=== PATIENT | female | born 1930 | race Caucasian/White ===

== ENCOUNTER 2018-02-14 15:50 | Inpatient (IN) | payer OTHER ==
[~2018-02-14] VITALS: Ht 160 cm; Wt 68.0 kg
--- NOTE | 2018-02-14 16:39 | Diagnostic Imaging Report ---
PROCEDURE: CHEST SINGLE (PORTABLE) COMPARISON: None. INDICATIONS: NAUSEA FINDINGS: LUNGS: Ill-defined air space opacity in the right upper lobe may represent pneumonia. Upright PA and lateral chest would be of benefit. PLEURA: No effusions or pneumothorax. HEART \T\ MEDIASTINUM: The heart is within normal size-limits. BONES \T\ SOFT TISSUES: No acute findings. The increased density of lower vertebral bodies likely represents cement. CONCLUSION: Ill-defined right upper lobe airspace opacity. Satish Rain D.O. Dictated by: Satish Rain D.O. on 02/14/2018 at 16:40 Electronically approved by: Satish Rain D.O. on 02/14/2018 at 16:40
[2018-02-14] MEDS ORDERED: SODIUM CHLORIDE 0.9% 500ML 500 ML IV STA (17:08)
[2018-02-14] MEDS ORDERED: ONDANSETRON HCL 4 MG ORAL DISINTEGRATING TAB PO ONE (17:15)
[2018-02-14 17:21] LABS: BASOPHILS % 0.3 % (0.0-1.0); EOSINOPHILS # (AUTO) 0.1 (0.0-0.4); EOSINOPHILS % 1.7 % (0.0-6.0); HEMATOCRIT 38.3 % (34.2-44.1); HEMOGLOBIN 13.3 g/dL (12.0-16.0); LYMPHOCYTES # (AUTO) 1.6 (1.0-3.2); LYMPHOCYTES % 21.3 % (18.0-39.1); MEAN CORPUSCULAR HEMOGLOBIN 34.5 pg (28-32); MEAN CORPUSCULAR HGB CONC 34.7 g/dL (31-35); MEAN CORPUSCULAR VOLUME 99.5 fL (81-99); MONOCYTES # (AUTO) 0.5 (0.2-0.8); NEUTROPHILS # (AUTO) 5.3 (2.1-6.9); NEUTROPHILS % 69.2 % (38.7-80.0); PLATELET COUNT 210 x10e3/uL (140-360); RED BLOOD COUNT 3.85 x10e6/uL (3.6-5.1); RED CELL DISTRIBUTION WIDTH 12.8 % (11.7-14.4)
[2018-02-14 17:36] LABS: INR 1.1; PARTIAL THROMBOPLASTIN TIME 28.6 seconds (23.8-35.5); PROTHROMBIN TIME 13.4 seconds (11.9-14.5)
[2018-02-14 17:36] LABS: CLARITY,URINE SL CLOUDY (CLEAR); COLOR,URINE YELLOW (YELLOW); LEUKOCYTE ESTERASE ,URINE TRACE (NEGATIVE); NITRITE,URINE NEGATIVE (NEGATIVE); PROTEIN,URINE DIPSTICK 3+ (NEGATIVE)
[2018-02-14 17:37] LABS: BILIRUBIN,URINE 1+ (NEGATIVE); KETONES,URINE NEGATIVE (NEGATIVE); URINE UROBILINOGEN 1 mg/dL (0.2 - 1)
[2018-02-14 17:41] LABS: BACTERIA,URINE MANY /HPF; EPITHELIAL CELLS,URINE RARE /LPF
[2018-02-14 17:43] LABS: ALBUMIN 2.7 g/dL (3.5-5.0); ALBUMIN/GLOBULIN RATIO 0.7 (0.8-2.0); ANION GAP 15.7 mmol/L (8-16); CALCIUM 8.5 mg/dL (8.4-10.2); CREATININE, SERUM 1.59 mg/dL (0.57-1.11); MAGNESIUM 1.6 MG/DL (1.3-2.1); POTASSIUM 3.7 mmol/L (3.5-5.1)
[2018-02-14 18:03] LABS: CREATINE KINASE MB 1.5 ng/mL (0-5.0); THYROID STIMULATING HORMONE 4.687 uIU/mL (0.350-4.940)
[2018-02-14] MEDS ORDERED: ZOFRAN4 MG PO (18:48)
[2018-02-14] MEDS ORDERED: AMLODIPINE BESYL5 MG PO (18:55)
[2018-02-14] MEDS ORDERED: NEXIUM40 MG PO (18:55)
[2018-02-14] MEDS ORDERED: SENNA LAXATIVE8.6 MG PO (18:55)
[2018-02-14] MEDS ORDERED: PLAVIX75 MG PO (18:55)
[2018-02-14] MEDS ORDERED: SIMVASTATIN20 MG PO (18:55)
[2018-02-14] MEDS ORDERED: LEVOTHYROXINE75 MCG PO (18:55)
[2018-02-14] MEDS ORDERED: FLUOXETINE HCL10 MG PO (18:55)
[2018-02-14] MEDS ORDERED: METOPROLOL TART25 MG PO (18:55)
[2018-02-14] MEDS ORDERED: AMIODARONE HCL200 MG PO (18:55)
[2018-02-14] MEDS ORDERED: LEVOFLOXACIN 500MG/D5W 100ML 100 ML IV ONE (19:00)
[2018-02-14] MEDS ORDERED: ASPIRIN 81 MG CHEW TAB PO ONE (19:15)
[2018-02-14] MEDS ORDERED: LEVOFLOXACIN 750MG/DEXTROSE PREMIX BAG 150ML IV SCH (19:15)
[2018-02-14] MEDS ORDERED: AZITHROMYCIN 500MG/SOD CHL 0.9% 250ML BAG IV SCH (19:15)
--- OUTSIDE RECORDS SUMMARY | 2018-02-14 20:14 | XMS REPORT ---
Author Author [facility] Address Unknown Phone Unavailable Care Team Providers Care Education And Training Coordinator Name Role Phone CRISTINA ROBERT Unavailable Unavailable Problems This patient has no known problems. Allergies, Adverse Reactions, Alerts This patient has no known allergies or adverse reactions. Medications This patient has no known medications. Results Test Description Test Time Test Comments Text Results Atomic Results Result Comments CHEST SINGLE (PORTABLE) [place] [address] Patient Name: EH COPELAND MR #: [id number] : 1930 Age/Sex: 87/F Req #: [id number] Adm Physician: Ordered by: KARLOS KUMAR INSIDE OUTSIDE SALES REPRESENTATIVE Report #: [id number] Location: ER Room/Bed: Procedure: [id number] DX/CHEST SINGLE (PORTABLE) Exam Date: 02/14/18 Exam Time: 1610 REPORT STATUS: Signed PROCEDURE: CHEST SINGLE (PORTABLE) COMPARISON: None. INDICATIONS: NAUSEA FINDINGS : LUNGS: Ill-defined air space opacity in the right upper lobe may represent pneumonia. Upright PA and lateral chest would be of benefit. PLEURA: No effusions or pneumothorax. HEART T MEDIASTINUM: The heart is within normal size-limits. BONES T SOFT TISSUES: No acute findings. The increased density of lower vertebral bodies likely represents cement. CONCLUSION: Ill-defined right upper lobe airspace opacity. Isidro Rain D.O. Dictated by: Isidro Rain D.O. on 02/14/2018 at 16:40 Electronically approved by: Isidro Rain D.O. on 02/14/2018 at 16:40 Dictated By: ISIDRO RAIN DO 164 Transcribed By: PARKER on 02/14/18 164 COPY TO: KARLOS KUMAR NP
[2018-02-14] MEDS: SODIUM CHLORIDE 0.9% 1000ML 1,000 ML IV SCH (22:01)
[2018-02-14] MEDS: LEVOFLOXACIN 750MG/D5W 150ML 150 ML IV SCH (22:03)
[2018-02-14] MEDS ORDERED: SENNOSIDES 8.6 MG TAB PO SCH (23:45)
[2018-02-14] MEDS ORDERED: HYDRALAZINE HCL 20 MG/ML VIAL IV PRN (23:45)
[2018-02-15] VITALS (10 sets, daily range): BP systolic 111–205; BP diastolic 52–79
[2018-02-15] MEDS: AMLODIPINE BESYLATE 5 MG TAB PO SCH ×2 (00:24→09:00)
[2018-02-15] MEDS: AZITHROMYCIN 500MG/NS 250 ML 250 ML IV SCH ×2 (00:24→20:40)
[2018-02-15] MEDS: LISINOPRIL 10 MG TAB PO SCH ×2 (00:34→09:00)
[2018-02-15] MEDS: SODIUM CHLORIDE 0.9% 1000ML 1,000 ML IV SCH ×2 (03:03→12:41)
[2018-02-15 04:03] LABS: CREATINE KINASE MB 1.6 ng/mL (0-5.0)
[2018-02-15] MEDS ORDERED: SENNOSIDES 8.6 MG TAB PO PRN (06:15)
[2018-02-15] MEDS: LEVOTHYROXINE SODIUM 75 MCG TAB PO SCH (07:05)
[2018-02-15] MEDS: FLUOXETINE HCL 10 MG CAP PO SCH (09:22)
[2018-02-15] MEDS: PANTOPRAZOLE SOD 40 MG TABEC PO SCH (09:22)
[2018-02-15] MEDS: ONDANSETRON HCL INJ 2 MG/ML VIAL IV PRN ×3 (09:22→21:10)
[2018-02-15] MEDS: AMIODARONE HCL 200 MG TAB PO SCH (09:22)
[2018-02-15] MEDS: CLOPIDOGREL BISULFATE 75 MG TAB PO SCH (09:22)
[2018-02-15 11:41] LABS: CREATINE KINASE MB 1.8 ng/mL (0-5.0)
--- NOTE | 2018-02-15 18:10 | History and Physical ---
HISTORY OF PRESENT ILLNESS: An 87-year-old white female with past medical history positive for coronary artery disease status post stent placement, chronic renal insufficiency. Apparently she started having vomiting, diarrhea, and came to the emergency room. She was found to have pneumonia and dehydration also. REVIEW OF SYSTEMS: CARDIOVASCULAR: No chest pain or palpitation. RESPIRATORY: No shortness of breath. No cough. GASTROINTESTINAL: She had nausea but no vomiting, no diarrhea now, no abdominal pain. GENITOURINARY: No frequency, no dysuria. ALLERGIES: ALLERGIC TO A LONG LIST OF MEDICATIONS THAT INCLUDES PENICILLIN, SULFA, VENLAFAXINE, ASPIRIN, CODEINE, MORPHINE, IODINE, IODINATED CONTRAST BOTH ORAL AND IV DYE. SOCIAL HISTORY: She does not smoke. She does not drink. PAST MEDICAL HISTORY: Hypertension, chronic renal insufficiency, coronary artery disease status post stent placement. VITAL SIGNS: On the blood pressure 135/61. Temperature 97.4. Heart rate 55 per minute. Respiratory rate is 18 per minute. Oxygen saturation 97%. On the blood work, we have a BMP: Sodium 132, potassium 3.7, chloride 99, CO2 21, BUN 20, creatinine 1.59, glucose 98. On the CBC: White blood count 7.69, hemoglobin 13.3, hematocrit 38.3, platelet count 210,000. PT 13.4, PTT 28.6, INR 1.10. AST 98, ALT 91, total bilirubin 0.8, alkaline phosphatase 76. PHYSICAL EXAMINATION: HEART: Shows regular rhythm. Normal S1 and S2 sounds. LUNGS: Clear bilaterally. ABDOMEN: Soft. No tenderness, no distention, no visceromegaly. EXTREMITIES: Show no evidence of cyanosis, edema or trauma. Chest x-ray showed no evidence of infiltrate. Urine showed evidence of a gram-negative in the urine culture. Blood culture is still pending. FINAL IMPRESSION: 1. Aspiration pneumonia. 2. [id number] renal failure stage 3. 3. Urinary tract infection. 4. Hypertensive nephropathy. 5. Vomiting. 6. Coronary artery disease status post stent. 7. Diarrhea. 8. Elevated liver function tests. PLAN OF TREATMENT: Continue Zithromax 250 mg IV piggyback once a day. Levaquin 500 mg IV piggyback daily. Normal saline at 75 mL an hour. Amlodipine 5 mg daily. Zocor 20 mg daily. Plavix 75 mg daily. Lisinopril 10 mg daily. Amiodarone 200 mg daily. Fluoxetine 10 mg daily. Hydralazine 20 mg q.4 h. as needed for hypertension. Protonix 40 mg daily. Levothyroxine 75 mcg daily. We are going to also order physical and occupational therapy, speech therapy evaluation, renal ultrasound, gastroenterology consult, hepatitis profile, iron, TIBC, ferritin, ceruloplasmin level, and antimitochondrial antibodies, antinuclear antibodies. Repeat LFTs tomorrow. Liver ultrasound. Job#: [id number] EV
[2018-02-15 18:17] LABS: FERRITIN 598.63 ng/mL (4.63-204.00)
[2018-02-15] MEDS: LEVOFLOXACIN 750MG/D5W 150ML 150 ML IV SCH (19:59)
[2018-02-15] MEDS: SIMVASTATIN 20 MG TAB PO SCH (20:40)
[2018-02-16] VITALS (8 sets, daily range): BP systolic 105–169; BP diastolic 56–70
[2018-02-16] MEDS: LEVOTHYROXINE SODIUM 75 MCG TAB PO SCH (05:16)
[2018-02-16 07:28] LABS: ALBUMIN 2.1 g/dL (3.5-5.0); ALBUMIN/GLOBULIN RATIO 0.8 (0.8-2.0); ANION GAP 11.7 mmol/L (8-16); CALCIUM 7.8 mg/dL (8.4-10.2); CREATININE, SERUM 1.68 mg/dL (0.57-1.11)
[2018-02-16 07:38] LABS: POTASSIUM 2.7 mmol/L (3.5-5.1)
[2018-02-16] MEDS ORDERED: POTASSIUM CHLORIDE 20 MEQ TAB CR PO STA (07:55)
[2018-02-16] MEDS ORDERED: POTASSIUM CHLORIDE 20 MEQ TAB CR PO ONE ×3 (08:50→09:45)
[2018-02-16] MEDS: METOPROLOL TARTRATE 25 MG TAB PO SCH ×2 (09:00→16:26)
[2018-02-16] MEDS: ONDANSETRON HCL INJ 2 MG/ML VIAL IV PRN (10:11)
--- NOTE | 2018-02-16 11:58 | Diagnostic Imaging Report ---
PROCEDURE:ABDOMINAL ULTRASOUND COMPARISON:None. INDICATIONS:ELEVATED LFT'S FINDINGS: Liver: 12.4 cm in length in the right midclavicular line. Normal hepatic parenchymal echogenicity. Within the central left lobe there is a lobulated anechoic structure without internal vascularity, solid component, or thick septation measuring 2.7 x 2.7 x 4 cm. Main portal vein: 0.8 cm in caliber. Hepatopedal flow. Gallbladder: Surgically absent. Common Bile Duct: 0.6 cm in caliber. No echogenic filling defect. Right kidney: 7.3 cm in length. Scattered exophytic anechoic round structures project from the right kidney, the largest of which projects laterally and measures 4.7 x 5.4 x 4.9 cm. Increased renal cortical echogenicity. Left kidney: 10.6 cm in length. Scattered exophytic anechoic round structures project from the left kidney, the largest of which projects laterally and measures 4 x 4.4 x 3.7 cm. Increased renal cortical echogenicity. Spleen: 10.8 cm in length. Uniform parenchymal echotexture. Pancreas: The visualized portions of the pancreas are normal. Inferior vena cava: Patent. Aorta: Poorly visualized secondary overlying bowel gas. Ascites: None. CONCLUSION: Simple cyst within the left hepatic lobe measuring 4 cm. Otherwise unremarkable sonographic appearance of the liver. Status post cholecystectomy. Diminutive right kidney. Increased bilateral renal cortical echogenicity compatible with medical renal disease. Bilateral simple renal cysts. Dictated by: Saad Mcnair M.D. on 02/16/2018 at 12:00 Electronically approved by: Saad Mcnair M.D. on 02/16/2018 at 12:00
[2018-02-16] MEDS ORDERED: MEROPENEM 500MG 500 MG in SODIUM CHLORIDE 0.9% 50ML 50 ML IV SCH (12:00)
[2018-02-16] MEDS: LISINOPRIL 10 MG TAB PO SCH (12:02)
[2018-02-16] MEDS: PANTOPRAZOLE SOD 40 MG TABEC PO SCH (12:02)
[2018-02-16] MEDS: FLUOXETINE HCL 10 MG CAP PO SCH (12:02)
[2018-02-16] MEDS: AMLODIPINE BESYLATE 5 MG TAB PO SCH (12:02)
[2018-02-16] MEDS: AMIODARONE HCL 200 MG TAB PO SCH (12:02)
[2018-02-16] MEDS: CLOPIDOGREL BISULFATE 75 MG TAB PO SCH (12:02)
[2018-02-16] MEDS: MEROPENEM 500 MG VIAL IV SCH ×2 (12:29→17:47)
--- NOTE | 2018-02-16 12:34 | Progress Note ---
DATE: INTERNAL MEDICINE PROGRESS NOTE SUBJECTIVE: She did have some vomiting today. PHYSICAL EXAMINATION: HEART: Shows regular rhythm. Normal S1 and S2 sounds. LUNGS: Are clear bilaterally. ABDOMEN: Soft. EXTREMITIES: Show no evidence of cyanosis, edema or trauma. VITAL SIGNS: Blood pressure 134/60. Temperature 96.2. Heart rate 60 per minute. Respiratory rate is 20 per minute. Oxygen saturation is 96%. BLOOD WORK: We have a BMP: Sodium 134, potassium 2.7, chloride 105, CO2 20, BUN 22, creatinine 1.66, glucose 86. On the CBC: White blood count 7.69, hemoglobin 13.3, hematocrit 38.3, platelet count 210,000. PT 13.4, INR 1.10, PTT 28.6. AST 63, ALT 63, total bilirubin 0.6, alkaline phosphatase 56. FINAL IMPRESSION: 1. Aspiration pneumonia. 2. Acute on chronic renal failure stage 3. 3. Hypertensive nephropathy. 4. Elevated liver function tests. 5. Coronary artery disease status post stent placement in the past. 6. Vomiting. 7. Urinary tract infection. PLAN OF TREATMENT: Replace the potassium. We are going to continue Zithromax 250 mg IV once a day. We are going to discontinue Levaquin and put her on meropenem 500 mg IV q.6 hours due to the urine culture report. The E. coli is resistant to Levaquin. THE PATIENT IS ALLERGIC TO PENICILLIN AND BACTRIM. Continue amlodipine 5 mg daily. Plavix 75 mg daily. Lisinopril 10 mg daily. Amiodarone 200 mg daily. Continue with fluoxetine 10 mg daily. Hydralazine 20 mg IV q.4 hours as needed. Protonix 40 mg daily. Levothyroxine 75 mcg daily. Zofran 4 mg IV q.4 hours as needed. Metoprolol 25 mg twice a day. Simvastatin 20 mg daily. Senna 1 tablet daily. We are going to continue the workup on the elevated liver function tests including abdominal ultrasound and including iron, TIBC, ferritin, hepatitis profile, ceruloplasmin antinuclear antibodies. Continue physical and occupational therapy. Blood cultures were negative. Urine culture showed 100,000 colonies of E. coli. Job#: [id number] EV
[2018-02-16] MEDS: ONDANSETRON HCL 4 MG ORAL DISINTEGRATING TAB PO PRN ×2 (15:23→19:58)
[2018-02-16 17:41] LABS: MAGNESIUM 1.2 MG/DL (1.3-2.1); POTASSIUM 4.4 mmol/L (3.5-5.1)
[2018-02-16] MEDS: AZITHROMYCIN 500MG/NS 250 ML 250 ML IV SCH (19:35)
[2018-02-16] MEDS: SIMVASTATIN 20 MG TAB PO SCH (20:58)
[2018-02-17] VITALS: BP 160/69
[2018-02-17] MEDS: MEROPENEM 500 MG VIAL IV SCH ×4 (00:20→18:11)
[2018-02-17] MEDS: ONDANSETRON HCL 4 MG ORAL DISINTEGRATING TAB PO PRN ×2 (01:06→11:45)
[2018-02-17 04:00] VITALS: BP 130/58
[2018-02-17] MEDS: LEVOTHYROXINE SODIUM 75 MCG TAB PO SCH (06:03)
[2018-02-17 07:39] LABS: ALBUMIN 2.1 g/dL (3.5-5.0); ALBUMIN/GLOBULIN RATIO 0.8 (0.8-2.0); ANION GAP 9.2 mmol/L (8-16); CALCIUM 8.1 mg/dL (8.4-10.2); CREATININE, SERUM 1.57 mg/dL (0.57-1.11); POTASSIUM 4.2 mmol/L (3.5-5.1)
[2018-02-17 07:56] VITALS: BP 120/53
[2018-02-17] MEDS: AMIODARONE HCL 200 MG TAB PO SCH (08:10)
[2018-02-17] MEDS: PANTOPRAZOLE SOD 40 MG TABEC PO SCH (08:10)
[2018-02-17] MEDS: CLOPIDOGREL BISULFATE 75 MG TAB PO SCH (08:10)
[2018-02-17] MEDS: AMLODIPINE BESYLATE 5 MG TAB PO SCH (08:10)
[2018-02-17] MEDS: FLUOXETINE HCL 10 MG CAP PO SCH (08:11)
[2018-02-17] MEDS: LISINOPRIL 10 MG TAB PO SCH (09:00)
[2018-02-17] MEDS: METOPROLOL TARTRATE 25 MG TAB PO SCH ×2 (09:00→17:00)
[2018-02-17 10:10] VITALS: BP 120/53
[2018-02-17 11:51] VITALS: BP 143/65
[2018-02-17] MEDS ORDERED: MAGNESIUM SULF 1GRAM/DEXTROSE 100 ML IV ONE (15:30)
[2018-02-17 16:15] VITALS: BP 136/63
--- NOTE | 2018-02-17 16:31 | Discharge Summary ---
HISTORY OF PRESENT ILLNESS: Patient is an 87-year-old female with past medical history positive for hypertension, chronic renal insufficiency, hypertensive nephropathy, coronary artery disease. Came here with vomiting, diarrhea. She was found to have aspiration pneumonia, acute on chronic renal failure stage 3. She was started on IV antibiotics and IV fluids. We optimized the antihypertensive regimen. She was taking Zofran for the vomiting. She was also found to have elevated LFTs. Patient is going to be transferred to [facility] today. PHYSICAL EXAM: HEART: Shows regular rhythm. Normal S1 and S2 sounds. LUNGS: Clear bilaterally. ABDOMEN: Soft. EXTREMITIES: Show no evidence of cyanosis, edema or trauma. On the CBC: White blood count 7.69, hemoglobin 13.3, hematocrit 38.3, platelet count 210,000. On the BMP: Sodium 133, potassium 4.2, chloride 107, CO2 21, BUN 21, creatinine 1.57, glucose 87, magnesium was low at 1.2. Iron 67, ferritin 588.63. Total bilirubin 0.6, AST 53, ALT 56, alkaline phosphatase of 57, total protein 4.9, albumin 2.1, globulin 2.8, albumin-globulin ratio 0.8. Antinuclear antibodies are still pending. The hepatitis profile is still pending. Coagulation showed PT 13.4, INR 1.10, PTT 28.6. On the microbiology: Blood cultures negative times 2 with the urine culture showing E. coli 100,000 colonies. VITAL SIGNS: Blood pressure is 143/65, temperature 96.3, heart rate 52 per minute, respiratory rate is 22 per minute, oxygen saturation 98%. FINAL IMPRESSIONS: 1. Aspiration pneumonia. 2. Acute renal failure on chronic renal failure stage 3. 3. Hypertensive nephropathy. 4. Coronary artery disease status post stent in the past. 5. Vomiting, which is resolving. 6. Diarrhea, which is resolving. 7. Urinary tract infection with Escherichia coli. 8. Elevated liver function tests. PLAN OF TREATMENT: Continue Zithromax 500 mg IV daily. Continue amiodarone 200 mg daily. Amlodipine 5 mg daily. Plavix 75 mg daily. Fluoxetine 10 mg daily. Hydralazine 20 mg IV q.4 hours as needed. Levothyroxine 75 mcg daily. Lisinopril 10 mg daily. Meropenem 500 mg IV q.6 hours. Metoprolol 25 mg twice a day. Zofran 4 mg p.o. q.4 hours as needed. Protonix 40 mg daily. Senna 1 tablet daily. Simvastatin 20 mg daily, which we are going to place on hold as long as she is on the Zithromax. So, patient is going to be transferred to [facility] today for continuation of the IV antibiotics, physical and occupational therapy. ISRAEL IRWIN MD Job#: [id number] EV
== END 2018-02-17 19:05 | DRG 178 ==
LOC: ER 15:50 → ERHOLD 20:11 → MED/SURG3 22:52
PROVIDERS: ADMIT Internal Medicine; ATTEND Internal Medicine
DX: J69.0 Pneumonitis due to inhalation of food and vomit (principal); N17.9 Acute kidney failure, unspecified; N39.0 Urinary tract infection, site not specified; E86.0 Dehydration; I12.9 Hypertensive chronic kidney disease with stage 1 through stage 4 chronic kidney disease, or unspecified chronic kidney disease; N18.3 Chronic kidney disease, stage 3 (moderate); I25.10 Atherosclerotic heart disease of native coronary artery without angina pectoris; B96.20 Unspecified Escherichia coli [E. coli] as the cause of diseases classified elsewhere; R94.5 Abnormal results of liver function studies; R19.7 Diarrhea, unspecified; Z95.5 Presence of coronary angioplasty implant and graft
CPT/HCPCS: 36415; 71045; 76700; 80053; 81001; 82390; 82550; 82553; 82607; 82728; 82746; 83540; 83735; 84132; 84443; 84484; 85025; 85610; 85730; 86039; 87040; 87086; 87186; 93005; 96360; 96361; 99284; J0360; J0456; J2185; J2405; J3475; J7030; J7040

== ENCOUNTER 2018-05-15 14:37 | Observation (INO) | payer OTHER ==
[~2018-05-15] VITALS: Ht 160 cm; Wt 69.2 kg
[~2018-05-15 14:37] MED LIST: AMIODARONE HCL200 MG PO; AMLODIPINE BESYL5 MG PO; FLUOXETINE HCL10 MG PO; LEVOTHYROXINE75 MCG PO; METOPROLOL TART25 MG PO; NEXIUM40 MG PO; PLAVIX75 MG PO; SENNA LAXATIVE8.6 MG PO; SIMVASTATIN20 MG PO; ZOFRAN4 MG PO
[2018-05-15] MEDS ORDERED: LISINOPRIL10 MG PO (15:26)
[2018-05-15] MEDS ORDERED: ATORVASTATIN CA10 MG PO (15:26)
--- NOTE | 2018-05-15 15:30 | Diagnostic Imaging Report ---
PROCEDURE: A single AP view of the chest. COMPARISON: 02/14/18 INDICATIONS: LOW HEART RATE FINDINGS: Lines/tubes: None. Lungs: Liver is slight rotation. The lungs are well inflated. Mild central vascular congestion. Prominent interstitial lung markings. Pleura: There is no pleural effusion or pneumothorax. Heart and mediastinum: The heart and the mediastinum are unremarkable. Bones: No acute bony abnormality. IMPRESSION: Limited by slight rotation. Prominent interstitial lung markings, could be chronic or represent mild interstitial edema. Mild central vascular congestion. Dictated by: Kevon Nelson M.D. on 05/15/2018 at 15:35 Electronically approved by: Kevon Nelson M.D. on 05/15/2018 at 15:35
[2018-05-15 15:52] LABS: BASOPHILS % 0.3 % (0.0-1.0); EOSINOPHILS # (AUTO) 0.1 (0.0-0.4); EOSINOPHILS % 2.1 % (0.0-6.0); HEMATOCRIT 38.6 % (34.2-44.1); HEMOGLOBIN 12.6 g/dL (12.0-16.0); LYMPHOCYTES # (AUTO) 2.1 (1.0-3.2); LYMPHOCYTES % 33.9 % (18.0-39.1); MEAN CORPUSCULAR HEMOGLOBIN 34.7 pg (28-32); MEAN CORPUSCULAR HGB CONC 32.6 g/dL (31-35); MEAN CORPUSCULAR VOLUME 106.3 fL (81-99); MONOCYTES # (AUTO) 0.4 (0.2-0.8); NEUTROPHILS # (AUTO) 3.6 (2.1-6.9); NEUTROPHILS % 57.4 % (38.7-80.0); PLATELET COUNT 151 x10e3/uL (140-360); RED BLOOD COUNT 3.63 x10e6/uL (3.6-5.1)
[2018-05-15 16:13] LABS: ALBUMIN 3.3 g/dL (3.5-5.0); ALBUMIN/GLOBULIN RATIO 0.9 (0.8-2.0); ANION GAP 15.4 mmol/L (8-16); CALCIUM 8.9 mg/dL (8.4-10.2); CREATININE, SERUM 1.76 mg/dL (0.57-1.11); POTASSIUM 4.4 mmol/L (3.5-5.1)
[2018-05-15 16:20] LABS: CREATINE KINASE MB 1.1 ng/mL (0-5.0)
[2018-05-15] MEDS: LISINOPRIL 20 MG TAB PO SCH (17:28)
[2018-05-15 19:33] VITALS: BP 154/65
[2018-05-15 19:47] VITALS: BP 154/65
[2018-05-15 19:49] VITALS: BP 154/65
[2018-05-16] VITALS (7 sets, daily range): BP systolic 112–175; BP diastolic 55–72
[2018-05-16 01:16] LABS: CREATINE KINASE MB 0.9 ng/mL (0-5.0)
[2018-05-16 05:50] LABS: CHOL/HDL RATIO 3.1 (3.0-3.6)
[2018-05-16 06:56] LABS: CREATINE KINASE MB 0.9 ng/mL (0-5.0)
[2018-05-16] MEDS: LISINOPRIL 20 MG TAB PO SCH (08:37)
[2018-05-16] MEDS ORDERED: LISINOPRIL 10 MG TAB PO SCH (09:00)
[2018-05-16] MEDS ORDERED: SENNOSIDES 8.6 MG TAB PO SCH (12:15)
[2018-05-16] MEDS ORDERED: HYDRALAZINE HCL 20 MG/ML VIAL IV PRN (12:30)
[2018-05-16] MEDS ORDERED: SENNOSIDES 8.6 MG TAB PO PRN (12:45)
--- NOTE | 2018-05-16 13:45 | History and Physical ---
HISTORY OF PRESENT ILLNESS: [id number] female with past medical history positive for hypertension, paroxysmal atrial fibrillation, chronic renal insufficiency. The patient was sent to the emergency room from the clinic because of severe bradycardia. The heart rate was in the 40s. REVIEW OF SYSTEMS CARDIOVASCULAR: No chest pain or palpitation. RESPIRATORY: No shortness of breath and no cough. GASTROINTESTINAL: No nausea, no vomiting, no diarrhea. GENITOURINARY: No frequency or dysuria. ALLERGIES: SHE IS ALLERGIC TO MORPHINE, SULFA DRUGS, PENICILLIN, IODINE CONTRAST. PAST MEDICAL HISTORY: Hypertension, paroxysmal atrial fibrillation, chronic renal insufficiency. SOCIAL HISTORY: She does not smoke. She does not drink. PHYSICAL EXAMINATION VITAL SIGNS: Blood pressure 175/72, temperature 95.3, heart rate is 43 per minute, respiratory rate is 18 per minute, oxygen saturation 95%. On the BMP, sodium 137, potassium 4.4, chloride 106, CO2 20, BUN 23, creatinine 1.76, glucose 80. On the CBC, white blood count 6.29, hemoglobin 12.6, hematocrit 38.6, platelet count 151,000. AST 90, ALT 68, total bilirubin 0.5, alkaline phosphatase 108. EKG showed severe sinus bradycardia with AV dissociation and junctional bradycardia. DIAGNOSES 1. Hypertension with hypertensive nephropathy. 2. Chronic renal insufficiency, stage 3. PLAN OF TREATMENT: Going to discontinue metoprolol, discontinue amiodarone, increase lisinopril to 30 mg daily. Continue Norvasc 5 mg daily. We are going to resume the rest of the home medication with the exception of metoprolol and amiodarone. We are going to consult Dr. Velasco for cardiology and patient is on telemetry of course. Diet, renal diet. Job#: [id number] MELANIE
[2018-05-16] MEDS ORDERED: NON-FORMULARY MEDICATION (Ondansetron Hcl* (Zofran*) 4 MG) PO SCH (15:00)
[2018-05-16] MEDS: ONDANSETRON HCL 4 MG ORAL DISINTEGRATING TAB PO SCH ×2 (15:20→20:19)
[2018-05-16 16:03] LABS: FREE THYROXINE INDEX 2.5671 (1.4-3.8); THYROID STIMULATING HORMONE 2.565 uIU/mL (0.350-4.940)
--- NOTE | 2018-05-16 18:36 | Diagnostic Imaging Report ---
PROCEDURE:US RETROPERITONEAL ( KIDNEY ). COMPARISON:Patients [facility], US, US ABDOMEN COMPLETE, 02/16/2018, 10:38. INDICATIONS:ckd TECHNIQUE: [place]-scale and color sonographic images of the bilateral kidneys and bladder where obtained in transverse and longitudinal planes. FINDINGS: RIGHT KIDNEY: 7.5 cm, cortex 0.9 cm Cysts: Multiple cystic and anechoic lesions are noted in the right kidney, with the largest measuring 4.9 x 4.6 x 4.2 cm Solid masses: None Stones: None Hydronephrosis: None Echogenicity: Increased LEFT KIDNEY: 10.6 cm, cortex 1.6 cm Cysts: Multiple cystic and anechoic lesions are noted in the left kidney, with the largest measuring 4.0 x 4.4 x 3.7 cm. Solid masses: None Stones: None Hydronephrosis: None Echogenicity: Increased Bladder: Bladder is decompressed. CONCLUSION: 1. Atrophic right kidney with cortical thinning. Bilateral increased renal cortical echogenicity, consistent with medical renal disease. 2. No hydronephrosis, stones, or obstruction. 3. Multiple bilateral simple appearing cysts as described Konstantin Hart M.D. Dictated by: Konstantin Hart M.D. on 05/16/2018 at 18:41 Electronically approved by: Konstantin Hart M.D. on 05/16/2018 at 18:41
[2018-05-16] MEDS ORDERED: SIMVASTATIN 20 MG TAB PO SCH (21:00)
[2018-05-16] MEDS ORDERED: ATORVASTATIN 10 MG TAB PO SCH (21:00)
[2018-05-17] VITALS (7 sets, daily range): BP systolic 126–163; BP diastolic 52–70
[2018-05-17 05:40] LABS: ALBUMIN 2.5 g/dL (3.5-5.0); ANION GAP 11.9 mmol/L (8-16); CALCIUM 8.2 mg/dL (8.4-10.2); CREATININE, SERUM 1.98 mg/dL (0.57-1.11); POTASSIUM 3.9 mmol/L (3.5-5.1)
[2018-05-17] MEDS ORDERED: LEVOTHYROXINE SODIUM 75 MCG TAB PO SCH ×2 (06:00→09:00)
[2018-05-17] MEDS: AMLODIPINE BESYLATE 5 MG TAB PO SCH ×2 (09:00→12:57)
[2018-05-17] MEDS ORDERED: CLOPIDOGREL BISULFATE 75 MG TAB PO SCH (09:00)
[2018-05-17] MEDS ORDERED: ATORVASTATIN 10 MG TAB PO SCH (09:00)
[2018-05-17] MEDS ORDERED: LISINOPRIL 20 MG TAB PO SCH ×2 (09:00)
[2018-05-17] MEDS ORDERED: PANTOPRAZOLE SOD 40 MG TABEC PO SCH (09:00)
[2018-05-17] MEDS ORDERED: FLUOXETINE HCL 10 MG CAP PO SCH (09:00)
[2018-05-17] MEDS: ONDANSETRON HCL 4 MG ORAL DISINTEGRATING TAB PO SCH ×2 (09:00→15:00)
[2018-05-17] MEDS ORDERED: LISINOPRIL 10 MG TAB PO SCH (09:00)
--- NOTE | 2018-05-17 14:02 | Consultation ---
DATE OF CONSULTATION: May 16, 2018 CARDIOLOGY CONSULTATION REASON FOR CONSULTATION: Severe bradycardia. CHIEF COMPLAINT: I feel very tired. HISTORY OF PRESENT ILLNESS: The patient is an 87-year-old female with a history of atrial fibrillation who was taking metoprolol and amiodarone at home for rate and rhythm control who presented to the ER with feeling tired and was found to be in heart rate in the 30s and 40s, severe bradycardia and was admitted to the hospital for further evaluation and management. Patient denies any dizziness, syncope or presyncope. Denies any chest pain. Denies any history of CAD or heart failure. She has had paroxysmal atrial fibrillation for a long time and more recently she says that her heart rate has been noted to be low in the 40s most of the time and as low as in the 20s and 30s at times. REVIEW OF SYSTEMS: Denies dyspnea on exertion, orthopnea or PND, chest pain, syncope or presyncope. No abdominal pain or weight gain or loss. No fevers or chills or any infection symptoms. PAST MEDICAL HISTORY: 1. Hypertension. 2. Paroxysmal atrial fibrillation. 3. Chronic renal insufficiency. SOCIAL HISTORY: She does not smoke, drink or use drugs. FAMILY HISTORY: Noncontributory. No history of heart failure or early CAD. Notably, her sister is 93 years old, and her mother lived to be 98 years old. PHYSICAL EXAMINATION: VITALS: Heart rate 45, respiratory rate 18, blood pressure 165/68, satting 97% room air. EYES: Conjunctivae clear. EARS, NOSE, MOUTH AND THROAT: Normal mucosa, no pallor or bleeding. NECK: No jugular venous distention. MSK: Normal muscle tone and strength, no atrophy or abnormal movements. EXTREMITIES: No clubbing or cyanosis. SKIN: No venostasis changes or ulcers. GENERAL: Well-developed and thin white female. CARDIOVASCULAR: PMI nondisplaced. Regular S1 and S2. Bradycardia. No murmurs, rubs or gallops. Normal carotid pulses. Palpable femoral pulses, palpable pedal pulses and no peripheral edema or varicosities. RESPIRATORY: No respiratory distress. Lungs are clear to auscultation bilaterally. ABDOMEN: Soft, nontender and nondistended with no masses no hepatosplenomegaly. NEURO AND PSYCHIATRIC: Alert and oriented to person, place and time, normal affect. CARDIOVASCULAR MEDICATIONS Patient is on lisinopril 30 mg daily and hydralazine 10 mg IV q.4 hours p.r.n. for her blood pressure. Pravastatin 10 mg at bedtime. Clopidogrel 75 mg daily. Amlodipine 5 mg daily. LABORATORY DATA: All laboratory data reviewed. Pertinent findings include negative cardiac enzymes times three. Creatinine 1.76. Hemoglobin of 12.6 with MCV of 106. IMAGING: All imaging studies reviewed. Electrocardiogram shows severe sinus bradycardia without any AV block or arrhythmias. TELEMETRY: Data reviewed and no significant arrhythmias. Heart rates dropped into 30s overnight. ASSESSMENT AND PLAN 1. Severe sinus bradycardia. 2. Paroxysmal atrial fibrillation. 3. Hypertension. 4. Macrocytosis. PLAN: Patient has sick sinus syndrome given her history of paroxysmal atrial fibrillation with severe sinus bradycardia when she converts to sinus rhythm. For now will hold her metoprolol and amiodarone as her heart rates are in the 30s and 40s. She is hemodynamically stable, so no need for external pacing at this time. Will consult EP for discussion regarding permanent pacemaker placement as the patient has symptomatic bradycardia whenever she is in low heart rates. Recommend checking her TSH and echocardiogram in preparation for possible pacemaker placement. Thank you for this consult. Will continue to follow. Job#: [id number]
--- NOTE | 2018-05-17 15:33 | Discharge Summary ---
She is an 87-year-old female with past medical history positive for coronary artery disease status post stent placement, hypertension. Came here because of severe bradycardia in the 40s. Patient was removed from amiodarone and metoprolol. The heart rate stayed in the 40s. Dr. Polk, electrophysiology cardiology, was consulted on the case and he recommended pacemaker to the patient as an outpatient. I went to notify Dr. Polk that the patient is on Plavix which needs to be stopped 5 days prior to the procedure which she is taking because of a stent in the heart to see if he will be agreeable to stop it 5 days before the procedure. PHYSICAL EXAM VITAL SIGNS: Blood pressure 154/67, temperature 97.9, heart rate 46 per minute, respiratory rate 18 per minute, oxygen saturation 98%. HEART: Showed bradycardia around 40 to 45 per minute. Normal S1 and S2 sounds. LUNGS: Clear bilaterally. FINAL IMPRESSIONS 1. Sinus bradycardia, most likely is secondary to sick sinus syndrome. 2. Hypertension. 3. Coronary artery disease status post stent placement. PLAN OF TREATMENT: Continue amlodipine 5 mg daily, Lipitor 10 mg daily, Plavix 75 mg daily until she is told to hold it prior to the pacemaker placement by Dr. Polk. Continue Paxil 10 mg daily, Protonix 40 mg daily, levothyroxine 75 mcg daily. Continue lisinopril 30 mg daily. She is going to follow up with Dr. Villegas and Dr. Polk, portable machine sander next week. As I said I am going to notify Dr. Polk that the patient is on Plavix so he can decide when to stop the Plavix. ISRAEL IRWIN MD Job#: [id number] DG
--- NOTE | 2018-05-17 18:48 | Progress Note ---
DATE: May 17, 2018 CARDIOLOGY PROGRESS NOTE SUBJECTIVE: No major events overnight. Overall, feels okay. Just a little tired. No dizziness, presyncope or syncope. REVIEW OF SYSTEMS: As above, otherwise negative. OBJECTIVE VITAL SIGNS: Heart rate 45, respiratory rate 16, blood pressure 148/64, satting 99% on room air. GENERAL: An elderly, white female. CARDIOVASCULAR: PMI nondisplaced. Regular but bradycardiac. S1 and S2 normal. No murmurs, rubs or gallops. Palpable carotid pulses. Palpable femoral pulses. Palpable pedal pulses. No edema or varicosities. RESPIRATORY: Lungs clear to auscultation bilaterally. No respiratory distress. ABDOMEN: Soft and nontender. Nondistended. NEUROLOGIC AND PSYCHIATRIC: The patient is alert and oriented to person, place and time. Normal affect. IMAGING: Reviewed. Echocardiogram pending. TELEMETRY: Data reviewed shows severe sinus bradycardia without any significant high-grade AV blocks. LABORATORY DATA: Reviewed. Notable for a normal TSH of 2.56 and a free T4 of 2.56 as well. ASSESSMENT AND PLAN 1. Sick sinus syndrome. 2. History of coronary artery disease, status post stents. 3. Hypertension. 4. Hyperlipidemia. PLAN: Discussed need for a pacemaker extensively with the patient. The patient is in agreement, but would like to discuss with her family before proceeding with pacemaker placement. She had a similar conversation with Dr. Polk yesterday evening. I discussed this possibility with Dr. Polk and he is okay for the patient to go home and discuss this with family, and follow up with him as an outpatient for permanent pacemaker placement. She is to follow with me in my clinic in the next one to two weeks for her coronary artery disease as well as possible atrial fibrillation for which she was on amiodarone. Until further evidence of history is found, I will not start her on anticoagulation given her fragility and age. Continue her Plavix for prior known CAD, and other cardiovascular medical regimen. Thank you for this consult. The patient is okay to be discharged from a cardiovascular standpoint. Job#: [id number]
--- NOTE | 2018-05-18 13:55 | Consultation ---
DATE OF CONSULTATION:05/18/2018 ELECTROPHYSIOLOGY CONSULTATION REFERRING PHYSICIAN: Dr. Villegas. REASON FOR CONSULT: Sick sinus syndrome, bradycardia. HISTORY OF PRESENT ILLNESS: This is an 87-year-old woman with history of hypertension, history of paroxysmal atrial fibrillation with rapid ventricular response. She has been on amiodarone and beta blockers. Patient has had some dizzy spells, is feeling more tired than usual. She presented to the hospital. She was found to be bradycardiac, heart rate in the 40s. The amiodarone and beta blockers were discontinued. She continues to have episodes of bradycardia down in the 40s that correlates with feeling tired and weak. Also, she states she had a few episodes of dizziness, no syncope, no cardiac arrest. Currently patient in sinus bradycardia at a rate of 42. Otherwise no other complaints. REVIEW OF SYSTEMS CONSTITUTIONAL: Negative. CARDIOVASCULAR: As per HPI. RESPIRATORY: Negative. GASTROINTESTINAL: Negative. GENITOURINARY: Negative. MUSCULOSKELETAL: Negative. EYES: Negative. ENT: Negative. ALLERGY/IMMUNOLOGY: Negative. PSYCHIATRY: Negative. PAST MEDICAL HISTORY: Atrial fibrillation, hypertension. SURGICAL HISTORY: Negative. FAMILY HISTORY: No premature coronary artery disease. SOCIAL HISTORY: Denies smoking, alcohol. PHYSICAL EXAMINATION VITAL SIGNS: Blood pressure 133/60, pulse 40, respiration 20, O2 sat is 98%. GENERAL: No acute distress. HEENT: Moist mucous membranes. CARDIOVASCULAR: Regular. RESPIRATORY: Clear. ABDOMEN: Soft, nontender. MUSCULOSKELETAL: 2+ distal pulses. NEUROLOGICAL: No focal deficit. PSYCHIATRIC: Normal thought process. SKIN: No lesions. ELECTROCARDIOGRAM: Sinus bradycardia. IMPRESSION: Sick sinus syndrome. Patient with symptomatic bradycardia and history of atrial fibrillation with rapid ventricular response, unable to manage medically, no reversible causes at this time. Patient has some symptoms that include feeling tired, some dizziness. RECOMMENDATIONS: Discussed with the patient in detail. She has a strong indication for pacemaker. The procedure was explained in detail with benefits and risks. Patient voices understanding, but she wishes to think about it and discuss with her family and would like to do it as an outpatient. This is reasonable. We gave her some recommendations and precautions as to have some assistance so she does not have any falls at home, and we will set up the procedure as an outpatient a dual chamber pacemaker. Patient was recommended to hold the Plavix until we get the procedure next week. Thank you for letting us participate in [facility]. [facility]cal[facility]. Job#: [id number] EV MARIPOSA
== END 2018-05-17 17:02 | disposition home or self-care (01) ==
LOC: ER 14:37 → ERHOLD 17:11 → IMCU 19:29
PROVIDERS: ADMIT Internal Medicine; ATTEND Internal Medicine
DX: R00.1 Bradycardia, unspecified (principal); I49.5 Sick sinus syndrome; I12.9 Hypertensive chronic kidney disease with stage 1 through stage 4 chronic kidney disease, or unspecified chronic kidney disease; N18.3 Chronic kidney disease, stage 3 (moderate); Z88.5 Allergy status to narcotic agent; Z88.0 Allergy status to penicillin; Z88.2 Allergy status to sulfonamides; Z91.048 Other nonmedicinal substance allergy status; I48.0 Paroxysmal atrial fibrillation; I10 Essential (primary) hypertension; D75.89 Other specified diseases of blood and blood-forming organs; I25.10 Atherosclerotic heart disease of native coronary artery without angina pectoris; Z95.5 Presence of coronary angioplasty implant and graft; E78.5 Hyperlipidemia, unspecified
CPT/HCPCS: 36415 ×3; 71045; 76770; 80053 ×2; 80061; 82390; 82550 ×2; 82553 ×2; 83540; 84436; 84443; 84479; 84484 ×2; 85025; 86039; 86255; 93005; 93306; 99284; G0378 ×3; S0164

== ENCOUNTER → 2018-05-19 | Outpatient (CLI) | payer OTHER ==
[~2018-05-19] VITALS: Ht 160 cm; Wt 68.5 kg
[~2018-05-19] MED LIST changes: +ATORVASTATIN CA10 MG PO; +LISINOPRIL10 MG PO
[2018-05-19 08:53] LABS: BASOPHILS % 0.5 % (0.0-1.0); EOSINOPHILS # (AUTO) 0.2 (0.0-0.4); EOSINOPHILS % 3.8 % (0.0-6.0); HEMATOCRIT 41.3 % (34.2-44.1); HEMOGLOBIN 13.5 g/dL (12.0-16.0); LYMPHOCYTES % 35.9 % (18.0-39.1); MEAN CORPUSCULAR HEMOGLOBIN 34.8 pg (28-32); MEAN CORPUSCULAR HGB CONC 32.7 g/dL (31-35); MEAN CORPUSCULAR VOLUME 106.4 fL (81-99); MONOCYTES # (AUTO) 0.3 (0.2-0.8); MONOCYTES % 6.1 % (4.4-11.3); NEUTROPHILS % 53.5 % (38.7-80.0); PLATELET COUNT 144 x10e3/uL (140-360); RED BLOOD COUNT 3.88 x10e6/uL (3.6-5.1)
[2018-05-19 09:06] LABS: INR 1.03; PROTHROMBIN TIME 12.7 seconds (11.9-14.5)
[2018-05-19 09:11] LABS: ANION GAP 15.1 mmol/L (8-16); CALCIUM 9.2 mg/dL (8.4-10.2); CREATININE, SERUM 1.87 mg/dL (0.57-1.11); POTASSIUM 4.1 mmol/L (3.5-5.1)
== END ==
LOC: LAB 05:00 → EDSTATUS 05-22 07:00
PROVIDERS: ATTEND Internal Medicine
DX: Z01.818 Encounter for other preprocedural examination (principal); Z53.8 Procedure and treatment not carried out for other reasons; I49.5 Sick sinus syndrome
CPT/HCPCS: 36415; 80048; 85025; 85610